=== PATIENT | female | born 1970 | race Caucasian/White ===

== ENCOUNTER → 2017-05-29 | Outpatient (CLI) | payer BC ==
[~2017-05-29] MED LIST: ACETAMINOPHEN PO; ASPIRIN325 M1; CHLOR-TRIMETON4 MG PO; CLARITIN D PO; LORTAB 10-3251 EACH PO; MEDROL DOSEPAK4 MG PO; MUCINEX DM ER1 EAC1 PO; NEXIUM PO; NO MEDICATIONS; PEPCID COMPLET1 EAC1 PO; PHENERGAN/CODEIN5 ML PO; PROTONIX PO
--- NOTE | ~2017-05-29 | CR63 ---
[facility] A Service of [facility] [place] RADIOLOGY TEXT RESULTS PATIENT: RUT KIM LOCATION: [facility] : [birth year] UNIT #: [id number] AGE: [address]: Nicola Andrade MD SEX: F ORDER DR: [id number] [place] [id number] MR#: [id number] Acc #: [id number] NAME: RUT KIM : 1970 SEX: F STUDY DATE/TIME: 05/29/2017 17:31 UNIT: [facility] ROOM: STUDY DESCRIPTION: CR Chest 2 View Attending Physician: Nicola Andrade M.D. Referring Physician: Nicola Andrade M.D. Ordering Physician: Nicola Andrade M.D. Primary Care Physician: Nicola Andrade M.D. MEDICAL IMAGING REPORT This report is preliminary unless electronic signature is present. EXAM Chest x-ray, 05/29. INDICATION Labored breathing that started 2 weeks ago. History of asthma. COMPARISON 01/06/2014 FINDINGS PA and lateral examination of the chest upright shows a good expansion of the parenchyma with a normal distribution of the pulmonary vascularity. There is no indication of congestion, effusion, infiltrate, tumor, or nodular density. The pleural reflections and diaphragmatic contours are normal. The cardiac silhouette and mediastinal anatomy is within normal limits. IMPRESSION Normal chest. Dictated by... Rashawn Livingston Jr., M.D. THIS IS AN ELECTRONICALLY VERIFIED REPORT Rashawn Livingston Jr., M.D. at 05/30/2017 4:09 PM SOULEYMANE/raulito TD: 05/30/2017 09:37 JOB #: [id number] [facility] A Service [facility] RADIOLOGY TEXT RESULTS PATIENT: RUT KIM LOCATION: [facility] : 70 UNIT #: [id number] AGE: [address]: Nicola Andrade MD SEX: F ORDER DR: MEDICAL IMAGING REPORT Page 1 of 1
== END | disposition home or self-care (01) ==
LOC: SRAD 17:08
DX: R06.02 Shortness of breath (principal)
CPT/HCPCS: 71020